=== PATIENT | male | born 1970 | race Caucasian/White ===

== ENCOUNTER 2016-10-14 22:33 | Emergency (ER) | payer MEDICARE | END 2016-10-15 00:28 | disposition home or self-care (01) | LOC: D.ER 22:33 | DX: M54.5 Low back pain (principal); I10 Essential (primary) hypertension; F41.9 Anxiety disorder, unspecified ==

== ENCOUNTER 2016-10-31 11:43 | Emergency (ER) | payer MEDICARE | END 2016-10-31 13:15 | disposition home or self-care (01) | LOC: D.ER 11:43 | DX: R07.9 Chest pain, unspecified (principal); F41.9 Anxiety disorder, unspecified; M54.5 Low back pain; I10 Essential (primary) hypertension ==